=== PATIENT | male | born 1985 | race Caucasian/White ===

== ENCOUNTER 2020-12-14 09:04 | Emergency (ER) | payer SELFPAY ==
[2020-12-14 09:27] VITALS: BP 138/92; PULSE 78; RESP 16; TEMP 36.8; O2SAT 97; BMI 22.8
--- NOTE | 2020-12-14 09:36 | ED.DENTAL ---
HPI - Dental/Oral General Chief complaint: Dental/Oral Stated complaint: dental pain Time Seen by Provider: 12/14/20 09:33 Source: patient Mode of arrival: ambulatory Limitations: no limitations History of Present Illness MD Complaint: tooth pain Location: Tooth # (MULTIPLE LEFT LOWER DENTAL CARIES - POOR DENTITION) Onset (ago): day(s) (5) Duration: worsening Severity: severe Relieving factors: nothing Exacerbating factors: chewing, cold, drinking fluids and swallowing Context: history of dental caries Associated symptoms: gum swelling Treatment prior to arrival: none Related Data Previous Rx's Medication Instructions Recorded amoxicillin 500 mg capsule 500 mg PO TID 10 Days #30 cap 12/14/20 hydrocodone 5 mg-acetaminophen 325 1 tab PO Q6H PRN #12 tab 12/14/20 mg tablet Allergies Allergy/AdvReac Type Severity Reaction Status Date / Time No Known Allergies Allergy Verified 12/14/20 09:37 Review of Systems Review of Systems: Constitutional : No Fever, No Chills ENT/Mouth : No swallowing difficulty, no change in voice, positive dental pain, positive jaw pain, positive facial swelling Eyes: No Eye Pain, No Swelling Cardiovascular : No Chest Pain, No SOB Respiratory : No Cough, No Sputum Gastrointestinal : No Nausea, No Vomiting, No Diarrhea Genitourinary : No Dysuria Musculoskeletal : No Myalgias Skin : No rash Neuro : No Weakness, No Numbness, No Headache PMFSH Past Medical History Attestation statement: The following information was validated with the patient. Medical History No known health problems Social History Social History (Updated 12/14/20 @ 09:53 by Fatoumata Drew DO) Patient Tobacco Use Status: Current everyday Tobacco user Advance Directives: No Physical Exam Vital Signs: Vital Signs: Last Vital Signs Temp 98.3 F 12/14/20 09:27 Pulse 78 12/14/20 09:27 Resp 16 12/14/20 09:27 BP 138/92 H 12/14/20 09:27 Pulse Ox 97 12/14/20 09:27 Body Mass Index 22.8 Appearance: Alert. Oriented X3. No acute distress. Eyes: Pupils equal, round and reactive to light. ENT: severe diffuse poor dentition - teeth are all down to the gum line and black diffusely with diffuse gum hyperemia on the left lower canine area there is mild swelling and fluctuance that has caused mild left lower lip swelling but I cannot find a discrete area to mouna, there is no submandibular or sublingual swelling, normal voice, drinking and tolerating secretions Neck: Normal inspection. Neck supple. CVS: Normal heart rate and rhythm. Pulses normal. Respiratory: No respiratory distress. Breath sounds normal. Abdomen: no trauma noted Skin: Skin warm and dry. Normal skin color. Extremities: No lower extremity edema. Neuro: Oriented X 3. No motor deficit. No sensory deficit. MDM - Dental/Oral MDM Narrative Medical decision making narrative: 35 yo male with poor dentition comes in with dental infection for the past several days now with likely developing abscess but on exam no discrete area to drain on exam - no evidence of deeper space infection, will start on amoxicillin and pain medications - has dental appointment tomorrow, discussed reasons to return Discharge Plan Discharge Clinical Impression: Dental caries, Dental abscess Patient Disposition: Home, Self-Care Instructions: Dental Abscess (ED), Mouth Care (ED) Additional Instructions: return to ED for any worsening symptoms or concerns PLEASE SEE THE DENTIST TOMORROW PLANNED IF NO IMPROVEMENT ON ANTIBIOTICS IN 24 HOURS YOU NEED TO BE SEEN SOON POSSIBLE Prescriptions: New amoxicillin 500 mg capsule 500 mg PO TID 10 Days Qty: 30 RF: 0 hydrocodone-acetaminophen 5-325 mg tablet 1 tab PO Q6H PRN (Reason: pain) Qty: 12 RF: 0 Stand Alone Forms: Work/School Release
[2020-12-14] MEDS: Amoxicillin 500 MG CAPSULE PO (10:00)
[2020-12-14] MEDS: HYDROcodone Bit/Acetam 5/325 TABLET 1 TAB PO (10:00)
== END 2020-12-14 10:03 | disposition home or self-care (01) ==
PROVIDERS: Emergency Provider Emergency Medicine
DX: K02.9 Dental caries, unspecified (principal); K04.7 Periapical abscess without sinus; F17.200 Nicotine dependence, unspecified, uncomplicated
CPT/HCPCS: 99283; 99284

== ENCOUNTER 2021-10-22 20:01 | Emergency (ER) | payer OTHER, MEDICAID, SELFPAY ==
--- NOTE | ~2021-10-22 | XR_ITS ---
EXAMINATION: XR LUMBOSACRAL SPINE CLINICAL INFORMATION: Low back pain COMPARISON: None TECHNIQUE: Three views of the lumbosacral spine. FINDINGS: There is normal lumbar lordosis. The vertebral heights, alignment and disc heights are normal. There is no visible acute fracture, dislocation or subluxation. No aggressive lytic or sclerotic process seen. The paravertebral soft tissues are normal. XR/XR lumbar spine 2-3V IMPRESSION: Unremarkable lumbar spine examination.
[2021-10-22 20:09] VITALS: BP 152/86; PULSE 91; RESP 17; TEMP 37; O2SAT 99; BMI 21.4
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
[2021-10-22] MEDS: Lidocaine 4 % Patch ADH..PATCH 1 PATCH TRANSDERMA (22:20)
[2021-10-22] MEDS: Ketorolac Tromethamine 30 MG/ML VIAL IM (22:20)
== END 2021-10-22 22:21 | disposition home or self-care (01) ==
PROVIDERS: Emergency Provider Emergency Medicine
DX: M54.50 Low back pain, unspecified (principal); Z79.899 Other long term (current) drug therapy; F17.200 Nicotine dependence, unspecified, uncomplicated; Z71.6 Tobacco abuse counseling
CPT/HCPCS: 72100; 96372; 99283; 99284; J1885

== ENCOUNTER 2023-01-10 11:23 | Emergency (ER) | payer MEDICAID, SELFPAY ==
[2023-01-10 11:44] VITALS: BP 142/97; PULSE 88; RESP 16; TEMP 37; O2SAT 98; BMI 21.4
--- NOTE | 2023-01-10 11:44 | ED.GENADULT ---
HPI - General Adult General Chief complaint: Dental/Oral Stated complaint: headache and dental pain Time Seen by Provider: 01/10/23 11:47 Source: patient Mode of arrival: ambulatory Limitations: no limitations History of Present Illness HPI narrative: Patient is a 37 year old assigned male at with a history of poor dentition presenting to the emergency department today with a headache and dental pain. Patient states that over the last few days he has had worsening dental pain and a headache. Patient states he primary needs time off of work to get into a dentist. Patient denies any dizziness, lightheadedness, abdominal pain, nausea, vomiting, fever, chills, blurry vision, double vision, loss of vision, chest pain, difficulty breathing, shortness of breath, back pain, night sweats, pain with urination, increased urinary frequency, increased urinary urgency, blood in his urine or stool, syncope or a near syncopal episode, recent trauma or falls, bowel incontinence, bladder incontinence, bowel retention, bladder retention, or any other complaints at this time. Onset (ago): day(s) Location: head and mouth Severity: mild Severity scale (1-10): 4 Quality: aching and dull Pain Consistency: constant Relieving factors: none Exacerbating factors: none Associated symptoms: headaches Treatments prior to arrival: none Related Data Previous Rx's Medication Instructions Recorded amoxicillin 500 mg capsule 500 mg PO TID 10 days #30 caps 12/14/20 hydrocodone 5 mg-acetaminophen 325 1 tab PO Q6H PRN pain #12 tabs 12/14/20 mg tablet cyclobenzaprine 10 mg tablet 10 mg PO BEDTIME PRN muscle spasm 10/22/21 #7 tabs lidocaine 5 % topical patch 1 patch topical DAILY PRN pain #15 10/22/21 ea naproxen 500 mg tablet 500 mg PO BID 7 days #14 tabs 01/10/23 penicillin V potassium 500 mg 500 mg PO BID 10 days #20 tabs 01/10/23 tablet Allergies Allergy/AdvReac Type Severity Reaction Status Date / Time No Known Allergies Allergy Verified 01/10/23 11:44 Review of Systems Constitutional: Constitutional: Reports no additional constitutional complaints, Denies chills, Denies fever(s), Reports headache(s) and Denies night sweats Eyes: Eyes: Reports no additional eye complaints, Denies blurry vision, Denies change in vision, Denies diplopia, Denies eye discharge, Denies loss of vision and Denies eye pain ENT: Denies dizziness, Reports headache(s) and Reports mouth pain Cardiovascular: Cardiovascular: Reports no additional cardiovascular complaints, Denies chest pain, Denies lightheadedness, Denies Loss of Consciousness and Denies dyspnea Respiratory: Respiratory: Reports no additional respiratory complaints and Denies dyspnea Gastrointestinal: Gastrointestinal: Reports no additional gastrointestinal complaints, Denies abdominal pain, Denies melena, Denies hematochezia, Denies change in bowel habits and Denies change in stool character Genitourinary: Genitourinary: Reports no additional male genitourinary complaints, Denies hematuria, Denies oliguria, Denies difficulty urinating, Denies dysuria, Denies urinary frequency, Denies urinary hesitancy, Denies urinary incontinence and Denies urinary urgency Musculoskeletal: Musculoskeletal: Reports no additional musculoskeletal complaints, Denies numbness and Denies tingling Neurologic: Denies dizziness, Reports headache(s), Denies loss of vision, Denies numbness and Denies tingling Psychiatric: Psychiatric: Reports no additional psychiatric complaints Endocrine: Endocrine: Reports no additional endocrine complaints Hematologic/Lymphatic: Hematologic/Lymphatic: Reports no additional hematologic/lymphatic complaints Allergic/Immunologic: Allergic/Immunologic: Reports no additional allergic/immunologic complaints PMFSH Past Medical History Attestation statement: The following information was validated with the patient. Source: old records reviewed and nursing notes reviewed Medical History No known health problems Social History Social History Patient Tobacco Use Status: Current everyday Tobacco user Advance Directives: No Advance Directives Information Provided: No Physical Exam ED Vital Signs: Vital Signs - 24 hr 01/10/23 11:44 Temperature 98.6 F Pulse Rate 88 Respiratory Rate 16 Blood Pressure 142/97 H Pulse Oximetry 98 Oxygen Delivery Method Room Air BMI result Body Mass Index 21.4 Const General: cooperative, no acute distress, alert and awake Nutritional Appearance: well nourished Orientation/consciousness: patient oriented x3 Limitations: no limitations HENMT Head: Yes normal to inspection and Yes atraumatic Ears: hearing grossly normal bilaterally and external ears normal General nose exam: Normal external nose present, no nasal discharge noted and no epistaxis Face and sinus: Yes normal facial exam, No abrasion and No laceration Mouth: Normal oral and palatal mucosa present, no drooling and no muffled voice Teeth and gingiva: poor dentition (primarily nubs for teeth with caries throughout them) Eyes General: appearance normal, both eyes and all related structures Periorbital: periorbital findings normal Eyelids: Yes eyelids normal Conjunctivae: conjunctivae normal Pupils: Equal, round and reactive pupils present EOM: EOMs intact bilaterally Neck Neck: Yes normal visual inspection, Yes full ROM and Yes no lymphadenopathy Chest Chest palpation & inspection: normal inspection of the chest Resp Effort & Inspection: normal respiratory effort and able to speak in complete sentences GI Inspection: Yes normal to inspection Neuro General: patient oriented x3 and moves all extremities Cranial nerves: Yes Equal, round and reactive pupils present Cognition (Neuro): normal cognition Motor exam (neuro): 5/5 motor strength present throughout Sensory Exam: Normal double simultaneous stimulation for sensation Coordination: [id number] test normal Extrem General: Yes normal to inspection, Yes full ROM and Yes capillary refill normal Psych Appearance: grossly normal Mental Status: mental status grossly normal Affect: normal affect Attitude: cooperative Thought process: Normal thought process present Thought content: Normal thought content present Insight: Good insight present (Psych) Medical Decision Making Medical Decision Making MDM Narrative: Patient is a 37 year old assigned male at with a history of poor dentition presenting to the emergency department today with a headache, dental pain, and requesting time off work to visit a dentist. Patient's physical exam was as noted in the physical exam portion of this note. No collection was appreciated however, given the patient's pain and dentition, will treat for dental abscess. I explained my physical exam findings to the patient. I answered all questions asked by the patient. I stressed the importance of the patient taking his medication as prescribed. I stressed the importance of the patient following up with his primary care provider and a dentist. I stressed the importance of the patient returning to the emergency department immediately if his symptoms were to worsen or if he were to develop any dizziness, shortness of breath, difficulty breathing, chest pain, blurry vision, loss of vision, nausea, vomiting, abdominal pain, fever, chills, back pain, or any other complaints. Patient verbalized agreement and understanding with this treatment plan and discharge. Differential Diagnosis Differential Diagnoses: The differential diagnosis associated with the presentation includes Dental abscess Dental caries Poor dentition Prescription Management I considered prescription management with: Antibiotic (patient prescribed antibiotic for suspicion of dental abscess) Discharge Plan Discharge Clinical Impression: Dental abscess Patient Disposition: Home, Self-Care Instructions: Dental Abscess (ED) Additional Instructions: Follow up with your primary care provider and a dentist. Return to the emergency department immediately if your symptoms worsen or if you develop any dizziness, shortness of breath, difficulty breathing, chest pain, blurry vision, loss of vision, nausea, vomiting, abdominal pain, fever, chills, back pain, or any other complaints. Call or visit any of the clinics below to establish with a dentist: [facility] [address] [place] [address] [facility] [address] [facility], [address] [address] [facility] [address] [place] [id number] [facility] [address] [place] [address] [address] [place] [address] Prescriptions: New penicillin V potassium 500 mg tablet 500 mg PO BID 10 Days Qty: 20 0RF naproxen 500 mg tablet 500 mg PO BID 7 Days Qty: 14 0RF No Action cyclobenzaprine 10 mg tablet 10 mg PO BEDTIME PRN (Reason: muscle spasm) Qty: 7 0RF lidocaine 5 % adhesive patch,medicated 1 patch topical DAILY PRN (Reason: pain) Qty: 15 0RF Rx Instructions: leave on most painful area for up to 12 hrs amoxicillin 500 mg capsule 500 mg PO TID 10 Days Qty: 30 0RF hydrocodone-acetaminophen 5-325 mg tablet 1 tab PO Q6H PRN (Reason: pain) Qty: 12 0RF Referrals: [facility] [[place] Group] (Call to establish and follow up with a primary care provider. If you already have a primary care provider, please follow up with them.) [facility] [Provider Group] (Call to establish and follow up with a primary care provider. If you already have a primary care provider, please follow up with them.) [facility] [Provider Group] (Call to establish and follow up with a primary care provider. If you already have a primary care provider, please follow up with them.) Stand Alone Forms: Work/School Release Interventions: ED Discharge Assessment Last Done: 01/10/23 11:49 Discharge Date/Time: 01/10/23 11:50 Print Language: Colombian
== END 2023-01-10 11:50 | disposition home or self-care (01) ==
LOC: HO.ED 11:49
PROVIDERS: Emergency Provider Emergency Medicine
DX: K04.7 Periapical abscess without sinus (principal); R51.9 Headache, unspecified; F17.200 Nicotine dependence, unspecified, uncomplicated; Z71.6 Tobacco abuse counseling; Z79.899 Other long term (current) drug therapy
CPT/HCPCS: 99282; 99283

== ENCOUNTER 2025-01-14 10:58 | Emergency (ER) | payer MEDICAID, SELFPAY ==
--- NOTE | ~2025-01-14 | XR_ITS ---
EXAMINATION: XR THORACIC SPINE CLINICAL INFORMATION: back pain COMPARISON: None available. TECHNIQUE: AP lateral and swimmer's projection. FINDINGS: Multilevel marginal osteophyte formation and endplate sclerosis. No acute cortical disruption or malalignment. No lytic or blastic lesions. Mild S-shaped curvature of the thoracic spine. XR/XR thoracic spine 3V IMPRESSION: Multilevel spondylosis without acute fracture or gross listhesis. EXAMINATION: XR LUMBOSACRAL SPINE CLINICAL INFORMATION: back pain COMPARISON: October 22, 2021 TECHNIQUE: AP and lateral views. FINDINGS: Rudimentary ribs at T12. Prominent left transverse processes of L5 articulating with the sacrum. Mild multilevel marginal osteophyte formation and endplate sclerosis pronounced at L2-3 and L1 to levels. Levoconvex curvature of the lumbar spine. 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 Electronically signed by: Bull Forrester MD 01/14/2025 11:42 AM EST
--- NOTE | ~2025-01-14 | XR_ITS ---
EXAMINATION: XR THORACIC SPINE CLINICAL INFORMATION: back pain COMPARISON: None available. TECHNIQUE: AP lateral and swimmer's projection. FINDINGS: Multilevel marginal osteophyte formation and endplate sclerosis. No acute cortical disruption or malalignment. No lytic or blastic lesions. Mild S-shaped curvature of the thoracic spine. XR/XR lumbar spine 2-3V IMPRESSION: Multilevel spondylosis without acute fracture or gross listhesis. EXAMINATION: XR LUMBOSACRAL SPINE CLINICAL INFORMATION: back pain COMPARISON: October 22, 2021 TECHNIQUE: AP and lateral views. FINDINGS: Rudimentary ribs at T12. Prominent left transverse processes of L5 articulating with the sacrum. Mild multilevel marginal osteophyte formation and endplate sclerosis pronounced at L2-3 and L1 to levels. Levoconvex curvature of the lumbar spine. 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 Electronically signed by: Bull Forrester MD 01/14/2025 11:42 AM [facility]
[2025-01-14 11:10] VITALS: BP 157/85; PULSE 78; RESP 18; TEMP 37; O2SAT 98; BMI 18.9
--- NOTE | 2025-01-14 11:20 | ED_ITS ---
HPI - General Adult General Chief complaint: Back Pain/Injury Stated complaint: Back Pain Time Seen by Provider: 01/14/25 12:09 Source: patient Mode of arrival: ambulatory Limitations: no limitations History of Present Illness ED Provider: Matt Aguiar HPI narrative: 39 yold male healthy presents to the ED for low back pain radiating down left leg. Patient denies any recent trauma, dysuria, hematuria, flank pain, fever, chills, urinary/bowel incontinence, IV drug use, or immunocompromised diseases. Related Data Previous Rx's ?Medication ?Instructions ?Recorded amoxicillin 500 mg capsule 500 mg PO TID 10 days #30 c aps 12/14/20 hydrocodone 5 mg-acetaminophen 325 1 tab PO Q6H PRN pa in #12 tabs 12/14/20 mg tablet cyclobenzaprine 10 mg tablet 10 mg PO BEDTIME PRN musc le spasm 10/22/21 #7 tabs lidocaine 5 % topical patch 1 patch topical DAILY PRN pain #15 10/22/21 ea naproxen 500 mg tablet 500 mg PO BID 7 days #14 tab s 01/10/23 penicillin V potassium 500 mg 500 mg PO BID 10 days #2 0 tabs 01/10/23 tablet cyclobenzaprine 10 mg tablet 10 mg PO BEDTIME PRN musc le spasm 01/14/25 #10 tabs naproxen 500 mg tablet 500 mg PO BID PRN pain #14 t abs 01/14/25 prednisone 20 mg tablet 40 mg (2 x 20 mg) PO DAILY 5 days 01/14/25 #10 tabs Allergies Allergy/AdvReac Type Severity Reaction Status Date / Time No Known Allergies Allergy Verified 01/14/25 11:13 Review of Systems Review of Systems: back pain radiating down left leg Yes all other systems are reviewed and are negative [facility] Past Medical History Medical History No known health problems Social History Social History Patient Tobacco Use Status: Current everyday Tobacco user Advance Directives: No Advance Directives Information Provided: Yes Do you have a plan to hurt others: No Plan Physical Exam ED Vital Signs: Vital Signs - 24 hr 01/14/25 11:10 Temperature 98.6 F Pulse Rate 78 Respiratory Rate 18 Blood Pressure 157/85 H Pulse Oximetry 98 Oxygen Delivery Method Room Air BMI result Body Mass Index 18.9 [facility] Head: Yes normal to inspection, Yes No palpable skull fracture present, Yes normocephalic and Yes atraumatic Eyes General: appearance normal, both eyes and all related structures Neck Neck: Yes normal visual inspection, Yes full ROM, Yes no lymphadenopathy, Yes no meningeal signs, Yes trachea midline, Yes supple, No anterior neck swelling and No tender Chest Chest palpation & inspection: normal inspection of the chest and normal palpation of entire chest wall Resp Effort & Inspection: normal respiratory effort and able to speak in complete sentences Auscultation: clear to auscultation bilaterally Cardio Jugular venous distension: no JVD Heart sounds: S1 normal heart sound present GI Inspection: Yes normal to inspection Palpation (GI): Soft to palpation, not firm, nontender, no guarding and not rigid Back/Spine/Pelvis Back: back tenderness (lumbar spine tenderness) Skin General skin exam: no rashes or lesions noted, elasticity normal and turgor normal Neuro General: moves all extremities, Normal light touch and pain sensation, no meningeal signs, no focal motor deficits, CN's II-XI intact bilaterally and normal sensation to monofilament Extrem General: Yes normal to inspection, Yes full ROM and Yes capillary refill normal Psych Appearance: grossly normal, well kempt and not disheveled Course Course Course Narrative: RME: 39 yold male presents to the ED for lower back pain radating down leg and calf without any trauma. patient states no urinary/bowel incontinence, IV drug use, or immunocompromise diseases. X-rays ordered Medications Administered Discontinued Medications Generic Name Dose Route Start Last Admin Trade Name Freq PRN Reason Stop Dose Admin Cyclobenzaprine HCl 10 mg 01/14/25 12:20 01/14/25 12:46 Cyclobenzaprine Hcl 10 Mg Tablet PO 01/14/25 12:21 10 mg ONCE ONE Administration Ketorolac Tromethamine 30 mg 01/14/25 12:20 01/14/25 12:47 Ketorolac Tromethamine 30 Mg/Ml Vial IM 01/14/25 12:21 30 mg ONCE ONE Administration Prednisone 40 mg 01/14/25 12:20 01/14/25 12:46 Prednisone 20 Mg Tablet PO 01/14/25 12:21 40 mg ONCE ONE Administration Medical Decision Making Medical Decision Making MDM Narrative: 39-year-old male presents to ED for lower back pain that is worse on movement radiating down left leg with some numbness. Patient denies any recent trauma, fever or chills. Patient denies any IV drug use, immunocompromise diseases, saddle anesthesia, or urinary / bowel incontinence. Not suspecting DVT, cauda equinus syndrome, epidural abscess, osteomyelitis, pyelonephritis, kidney stones, UTI, or any other life-threatening etiology. Patient explained worrisome signs informed return to the ED immediately Differential Diagnosis Differential Diagnoses: The differential diagnosis associated with the presentation includes (back pain, ) Admission/Observation Consideration of admission/observation: Escalation of care including admission/observation considered Independent Interpretation I performed an independent interpretation of an: Plain X-Ray Independent Historian Clinical information obtained from an independent historian. History obtained from or confirmed by: Other (patient) Prescription Management I considered prescription management with: Pain Medication Discharge Plan Discharge Clinical Impression: Lumbar radiculopathy Patient Disposition: Home, Self-Care Instructions: Lumbar Radiculopathy (ED), Back Pain (ED) Additional Instructions: recommend follow-up primary care provider. May need physical therapy MRI no improvement. Return to the ED immediately for any dysuria, hematuria, flank p ain, fever, chills, nausea, vomiting, severe back pain, weakness numbness/ tingling of lower extremity, genital numbness, or any other concerning symptoms. Ordering Physician: Matt Aguiar Date of Service: 01/14/25 Procedure(s): XR lumbar spine 2-3V Accession Number(s): [id number] cc: Matt Aguiar; Physician,Unknown ~ Reason for Exam: back pain. EXAMINATION: XR THORACIC SPINE CLINICAL INFORMATION: back pain COMPARISON: None available. TECHNIQUE: AP lateral and swimmer's projection. FINDINGS: Multilevel marginal osteophyte formation and endplate sclerosis. No acute cortical disruption or malalignment. No lytic or blastic lesions. Mild S-shaped curvature of the thoracic spine. XR/XR lumbar spine 2-3V IMPRESSION: Multilevel spondylosis without acute fracture or gross listhesis. EXAMINATION: XR LUMBOSACRAL SPINE CLINICAL INFORMATION: back pain COMPARISON: October 22, 2021 TECHNIQUE: AP and lateral views. FINDINGS: Rudimentary ribs at T12. Prominent left transverse processes of L5 articulating with the sacrum. Mild multilevel marginal osteophyte formation and endplate sclerosis pronounced at L2-3 and L1 to levels. Levoconvex curvature of the lumbar spine. 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 Electronically signed by: Bull Forrester MD 01/14/2025 11:42 AM [facility] Prescriptions: New naproxen 500 mg tablet 500 mg PO BID PRN (Reason: pain) Qty: 14 0RF prednisone 20 mg tablet 40 mg PO DAILY 5 Days Qty: 10 0RF cyclobenzaprine 10 mg tablet 10 mg PO BEDTIME PRN (Reason: muscle spasm) Qty: 10 0RF Rx Instructions: do not take at work or while driving. No Action cyclobenzaprine 10 mg tablet 10 mg PO BEDTIME PRN (Reason: muscle spasm) Qty: 7 0RF lidocaine 5 % adhesive patch,medicated 1 patch topical DAILY PRN (Reason: pain) Qty: 15 0RF Rx Instructions: leave on most painful area for up to 12 hrs amoxicillin 500 mg capsule 500 mg PO TID 10 Days Qty: 30 0RF hydrocodone-acetaminophen 5-325 mg tablet 1 tab PO Q6H PRN (Reason: pain) Qty: 12 0RF penicillin V potassium 500 mg tablet 500 mg PO BID 10 Days Qty: 20 0RF naproxen 500 mg tablet 500 mg PO BID 7 Days Qty: 14 0RF Referrals: Teddy Brown MD, PhD [Physician, Neuro Spine] - 2 days Referral Note: Lumbar radiculopathy. Bertolotti syndrome Clinical Impression: Lumbar radiculopathy Stand Alone Forms: Work/School Release Discharge Date/Time: 01/14/25 14:35 Print Language: [place]
== END 2025-01-14 14:35 | disposition home or self-care (01) ==
PROVIDERS: Emergency Provider Student in an Organized Health Care Education/Training Program
DX: M54.16 Radiculopathy, lumbar region (principal); F17.200 Nicotine dependence, unspecified, uncomplicated; Z71.6 Tobacco abuse counseling
CPT/HCPCS: 72072; 72100; 96372; 99282; 99284; J1885

== ENCOUNTER → 2025-01-14 11:18 | Outpatient (BNV) | payer MEDICAID, SELFPAY | PROVIDERS: Visit Provider Radiology Diagnostic Radiology | DX: M47.816 Spondylosis without myelopathy or radiculopathy, lumbar region (principal); Q76.49 Other congenital malformations of spine, not associated with scoliosis; M47.814 Spondylosis without myelopathy or radiculopathy, thoracic region | CPT/HCPCS: 72072; 72100 ==

== ENCOUNTER 2025-01-29 08:20 | Outpatient (AMB) | payer OTHER, SELFPAY ==
--- NOTE | 2025-01-29 08:20 | A.OFFPC_ITS ---
Vital Signs 01/29/25 08:21 Height 5 ft 9 in Weight 127 lb 6 oz BMI 18.8 BP 130/84 Blood Pressure Location Lt brachial Position Sitting Respiration 16 Pulse 84 Pulse Source Pulse Oximeter Temp 97.1 F Temp Source Temporal Artery Scan Pulse Oximetry (%) 96 Oxygen Delivery Method Room Air Intake Visit Reasons: severe back pain Hospital Manager Required: No Accompanied by: Significant Other Allergies No Known Allergies Allergy (Verified 01/29/25 08:20) Medication List - Last Reconciled 01/29/25 by Nate Duffy MD ibuprofen 200 mg PO Q6H PRN Tobacco use date assessed: 01/29/25 Dental Screening Dental Screen Date: 01/29/25 Did you have a dental visit in the last 12 months?: No Did you have a dental problem in the last 6 months where you did not have access to dental care?: No HPI HPI Comments History of Present Illness Details History of Present Illness The patient is a 39-year-old male presenting for a new patient visit and ev aluation of back pain. He reports an intermittent history of back pain for the last 2-3 years, which started after a work injury affecting his left side. The pain recurred and has been present for the last month or two after he slipped on some stairs. The pain is located on the left lower side and radiates to his buttock and down his leg, associated with numbness and tingling. He recently visited an emergency room for this pain, where he had X-rays of his lumbar spine. Past treatments include prednisone, which helped, and cyclobenzaprine, which was only effective for one to two days. He has been managing the pain with ibuprofen and Tylenol. The patient reports no chronic medical conditions and has had no surgeries. He has not had the COVID or flu shot this year. Based on his weight, he is considered underweight, and his girlfriend notes that he barely eats. Medical History: - No chronic medical conditions reported Surgical History: - No prior surgeries reported Medications: - Ibuprofen as needed for pain - Tylenol as needed for pain - Cyclobenzaprine (previously prescribed , reported as ineffective) - Prednisone (previously prescribed, rep orted as helpful) Family History: - Father: recently from hear t failure. - Brother: Has a congenital heart defect , described as a hole in the heart. - Niece: at age 7 from an un known cause, possibly related to diabetes. 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 Social History - Tobacco: Smokes half a pack of cigaret radha per day for about 17 years. - Alcohol: Denies alcohol use. - Illicit substances: Smokes marijuana d aily, approximately 3.5 grams. - Diet: Consumes a lot of coffee and Red Bull. - Social: He has two children and has a girlfriend of 18 years. - Activity: Reports trying to stay activ [employer] [facility] Medical History (Updated 01/29/25 @ 08:48 by Nate Duffy MD) Annual physical exam Cannabis use disorder Tobacco use disorder, continuous Low back pain No known health problems Social History Housing: Apartment Patient Tobacco Use Status: Current everyday Tobacco user Cigarette Packs Per Day: 0.5 e-Cigarette/Vaping Use: Former Use service: No Current occupational status: unemployed Questionnaire PHQ-9 Over the last 2 weeks, how often have you been bothered by any of the following problems? 1. Little interest or pleasure in doing things: not at all 2. Feeling down, depressed, or hopeless: not at all 3. Trouble falling or staying asleep, or sleeping too much: not at all 4. Feeling tired or having little energy: not at all 5. Poor appetite or overeating: not at all 6. Feeling bad about yourself - or that you are a failure or have let yourself or your family down: not at all 7. Trouble concentrating on things, such as reading the newspaper or watching television: not at all 8. Moving or speaking so slowly that other people could have noticed. Or the opposite - being so fidgety or restless that you have been moving around a lot more than usual: not at all 9. Thoughts that you would be better off or of hurting yourself in some way: not at all Total score: 0 Depression Screening Interpretation: Negative Depression Screening Done: Yes 37195 - PHQ-9 Billing: Yes Source: Developed by Drs. Kev Hubbard, Malinda ChuJamaal and colleagues, with an educational edie from [employer]. Thrive Questionnaire Date Thrive assessed: 01/29/25 I am a: Patient What is your living situation today?: I have a steady place to live Within the past 12 months, did the food you bought not last and you didn't have the money to get more?: Never true Within the past 12 months, did you worry whether your food would run out before you got money to buy more?: Never true Do you have trouble paying for medicines?: No Do you have trouble getting transportation to medical appointments?: No Do you have trouble paying your heating and electricity bill?: No Do you have trouble taking care of your child, family member or friend?: No Do you have trouble with day-to-day activities such as bathing, preparing meals, shopping, managing finances, etc.?: No Are you currently unemployed and looking for a job?: No Are you interested in more education?: No THRIVE Score: 0 AUDIT C Alcohol Use Questionnaire (AUDIT-C) 1. How often do you have a drink containing alcohol?: Never 3. How often do you have six or more drinks on one occasion?: Never Total Score: 0 Score Reviewed/Action Taken: Yes NADIR-7 AMB Questionnaire NADIR-7 Date NADIR - 7 assessed: 01/29/25 Feeling nervous, anxious, or on edge: 0 = Not at all Not being able to stop or control worryin = Not at all Worrying too much about different things: 0 = Not at all Trouble relaxin = Not at all Being so restless that it is hard to sit still: 0 = Not at all Becoming easily annoyed or irritable: 0 = Not at all Feeling afraid as if something awful might happen: 0 = Not at all Total NADIR-7 score (0-4 normal; 5-9 mild; 10-14 moderate; 15-21 severe): 0 Source: Developed by Drs. Kev Hubbard, Malinda Chu, Jamaal Falk and colleagues, with an educational edie from [employer]. NADIR-7 Assessment Billing NADIR-7 Assessment Tool: NADIR-7 Assessment 07061 Review of Systems Narrative Review of Systems - Constitutional: Reports being underweight. - Musculoskeletal: Reports intermittent low back pain for approximately 3 years, which is currently located on the left side and radiates to the buttock. - Neurological: Reports numbness and a tingling sensation radiating down his leg. - General: Denies any other medical conditions. All systems reviewed & are unremarkable except as reviewed in HPI and above Physical exam (Primary Care) Vital Signs: Last Vital Signs Temp 97.1 F 01/29/25 08:21 Pulse 84 01/29/25 08:21 Resp 16 01/29/25 08:21 BP 130/84 01/29/25 08:21 Pulse Ox 96 01/29/25 08:21 Oxygen Delivery Method Room Air 01/29/25 08:21 BMI result Body Mass Index 18.8 Tobacco/Smoking Status: Tobacco use Status Tobacco use date assessed 01/29/25 01/29/25 08:21 Patient Tobacco Use Status Current everyday Tobacco 01/29/25 08:21 e-Cigarette/Vaping Use Former Use 01/29/25 08:28 Are you ready to quit: Yes Tobacco cessation counseling provided: Yes Relapse Prevention: discussed the importance of a supportive environment and discussed dietary, exercise and/or lifestyle changes Number of minutes spent counselin CPT code: 02419 - 4-10 Minutes Depression Screening Interpretation: Negative Narrative Physical Exam General: Alert and oriented, Well nourished, No acute distress. Eye: Pupils are equal, round and reactive to light, Intact accommodation, Extraocular movements are intact, Normal conjunctiva, Vision unchanged. HENT: Normocephalic, Atraumatic, Tympanic membranes are clear, Normal hearing, Oral mucosa is moist, No pharyngeal erythema, Ear canals patent. Respiratory: Lungs CTA bilaterally, No wheeze, Respirations are non-labored. Cardiovascular: Regular rate, Regular rhythm, S1 auscultated, S2 auscultated, No murmur, Good pulses equal in all extremities, Normal peripheral perfusion, No edema. Gastrointestinal: Soft, Non-tender, Non-distended, Normal bowel sounds, No organomegaly. Musculoskeletal: Limited range of motion due to pain, Normal strength, Tenderness in the left lower back, No swelling, No deformity, Normal gait. Integumentary: Warm, Dry, English, Intact. Neurologic: Alert, Oriented, Normal sensory, Normal motor function, No focal defects, Cranial Nerves II-XII are grossly intact, Normal deep tendon reflexes. Psychiatric: Cooperative, Appropriate mood & affect, Normal judgment. Coding Level of Care Code New Pt Level 3 (18382) New Pt Prev Care 18-39yr(66845 Diagnoses Chronic bilateral low back pain with left-sided sciatica G89.29; M54.42 Chronicity: chronic Back pain laterality: bilateral Sciatica presence: with sciatica Sciatica laterality: sciatica of left side Tobacco use disorder, continuous F17.209 Cannabis use disorder F12.90 Annual physical exam Z00.00 Additional Codes NADIR-7 Assessment Billing - NADIR-7 Assessment Tool: NADIR-7 Assessment 33648 ([id number]) PHQ-9 - 91199 - PHQ-9 Billing: Yes ([id number]) Vital Signs *Quality* - CPT code: 55521 - 4-10 Minutes ([id number]) Comment 11152-16 Assessment & Plan Assessment & Plan (1) Low back pain: Comment: - The patient's presentation of left-sided low back pain radiating to the buttock and down the leg, with associated numbness, is diagnosed as sciatica. - An MRI would be the next best imaging modality but will be deferred pending a trial of conservative management - A referral will be sent for physical therapy. - Prescribed gabapentin 100 mg three times a day. - Instructed to continue alternating ibuprofen and Tylenol every 4-6 hours for pain management. - Follow-up in two months to assess response to treatment. Code(s): M54.50 - Low back pain, unspecified Category: Medical Qualifiers: Chronicity: chronic Back pain laterality: bilateral Sciatica presence: with sciatica Sciatica laterality: sciatica of left side Qualified Code(s): G89.29 - Other chronic pain; M54.42 - Lumbago with sciatica, left side (2) Tobacco use disorder, continuous: Comment: - The patient reports smoking half a pack of cigarettes a day for approximately 17 years. - Advised to quit smoking. Code(s): F17.209 - Nicotine dependence, unspecified, with unspecified nicotine-induced disorders Category: Medical (3) Cannabis use disorder: Comment: - The patient reports smoking approximately 3.5 grams of marijuana daily. - Strongly advised to stop marijuana use due to its high quantity and potential sedative interaction with the newly prescribed gabapentin. Code(s): F12.90 - Cannabis use, unspecified, uncomplicated Category: Medical (4) Annual physical exam: Comment: - As this is a new patient visit, comprehensive blood work was ordered to establish baseline health, including a CBC, electrolytes, glucose, hepatitis panel, HIV, cholesterol panel, urinalysis, syphilis screen, thyroid levels, and vitamin D. - The patient is currently underweight and was counseled on improving his diet. - Advised to reduce his high caffeine intake from coffee and Red Bull. - Encouraged to remain active to the best of his ability. - Will follow up in two months to review lab results and overall progress. Code(s): Z00.00 - Encounter for general adult medical examination without abnormal fin dings Category: Medical Plan: Health Maintenance: - Vaccinations: Patient reports he has not received the COVID-19 or influenza vaccines this year. - Lab screening: Ordered comprehensive labs including CBC, electrolytes, glucose, cholesterol, hepatitis panel, HIV test, syphilis test, thyroid panel, and vitamin D level. - Substance use counseling: Advised to quit smoking cigarettes and marijuana. - Lifestyle counseling: Advised to reduce caffeine intake (coffee and Red Bull), improve dietary habits as he is underweight, and stay physically active. Patient was informed and verbally consented to the use of an ambient scribe for clinic note documentation during this visit. Vital signs reviewed. Comprehensive history, review of systems, and physical exam completed. Medications, allergies, and problem list reviewed and updated. Counseling provided on nutrition, regular exercise, sleep hygiene, and moderation of alcohol use. Discussed age-appropriate screenings (mammogram, colonoscopy, Pap, bone density) and immunizations (flu, COVID, shingles, Tdap). Screened for depression, fall risk, and home safety; no current concerns. Discussed stress management, dental and vision care, and importance of ongoing preventive follow-up. Routine labs ordered for metabolic and lipid screening. Patient educated on healthy lifestyle and agrees with the plan. Plan I discussed with the patient that his symptoms are consistent with sciatica, which is nerve pain originating from the back. I explained that his recent X-ray showed some age-related changes but nothing that fully explains his current, severe symptoms. I outlined the plan to start physical therapy and a new medication, gabapentin, to help with the nerve pain. I was transparent about the process for obtaining an MRI, stating that insurance protocols require a trial of conservative treatments like physical therapy first. I strongly advised him to stop smoking marijuana, as its sedative effects can be dangerous when combined with gabapentin. We also discussed the importance of quitting cigarettes and reducing his high caffeine intake, as well as improving his diet since he is underweight. We will follow up in two months to assess his progress. Orders: Orders Complete Blood Count Auto Diff Today Z00.00 - Encounter for general adult medical examination without abnormal findings Comprehensive Met. Panel Today Z00.00 - Encounter for general adult medical examination without abnormal findings Syphilis Screen Today Z00.00 - Encounter for general adult medical examination without abnormal findings PT Evaluation and Treatment Today M54.50 - Low back pain, unspecified, M79.606 - Pain in leg, unspecified Hemoglobin A1c Today Z00.00 - Encounter for general adult medical examination without abnormal findings Hepatitis A,B,C Profile Today Z00.00 - Encounter for general adult medical examination without abnormal findings HIV Ab/Ag Today Z00.00 - Encounter for general adult medical examination without abnormal findings Lipid Panel Today Z00.00 - Encounter for general adult medical examination without abnormal findings Microalbumin, Random (w Creat) Today Z00.00 - Encounter for general adult medical examination without abnormal findings TSH reflex Free T4 Today Z00.00 - Encounter for general adult medical examination without abnormal findings Vitamin D 25-OH Total Today Z00.00 - Encounter for general adult medical examination without abnormal findings Medications: New gabapentin 100 mg PO TID 90 caps 0RF 30 days Discontinued amoxicillin Discontinued Reason: Patient Completed Course 500 mg PO TID 10 days 30 caps 0RF hydrocodone-acetaminophen 5-325 mg Discontinued Reason: Patient Completed Course 1 tab PO Q6H PRN 12 tabs 0RF pain cyclobenzaprine Discontinued Reason: Patient Completed Course 10 mg PO BEDTIME PRN 7 tabs 0RF muscle spasm lidocaine 5% leave on most painful area for up to 12 hrs Discontinued Reason: Patient Completed Course 1 patch topical DAILY PRN 15 ea 0RF pain naproxen Discontinued Reason: Patient Completed Course 500 mg PO BID 7 days 14 tabs 0RF penicillin V potassium Discontinued Reason: Patient Completed Course 500 mg PO BID 10 days 20 tabs 0RF cyclobenzaprine do not take at work or while driving. Discontinued Reason: Patient Completed Course 10 mg PO BEDTIME PRN 10 tabs 0RF muscle spasm naproxen Discontinued Reason: Patient Completed Course 500 mg PO BID PRN 14 tabs 0RF pain prednisone Discontinued Reason: Patient Completed Course 40 mg (2 x 20 mg) PO DAILY 5 days 10 tabs 0RF Patient Instructions: - Someone from the physical therapy department will call you to set up appointments. - Start taking gabapentin 100 mg, three times per day. - You can continue to take Tylenol and ibuprofen for pain by alternating them every 4-6 hours. - It is very important to stop smoking marijuana while taking gabapentin because the combination can be dangerous. - You should stop smoking cigarettes and drinking high-caffeine drinks like Red Bull. - Please try to eat more, as you are currently underweight. - Go across the [facility] to room 107 to have your blood drawn today. - We will see you back in the office in two months.
[2025-01-29 08:21] VITALS: BP 130/84; PULSE 84; RESP 16; TEMP 36.2; O2SAT 96; BMI 18.8
== END 2025-01-29 08:46 | disposition home or self-care (01) ==
LOC: HO.HMCHD 08:21
PROVIDERS: Visit Provider Student in an Organized Health Care Education/Training Program
DX: G89.29 Other chronic pain (principal); M54.42 Lumbago with sciatica, left side; F17.209 Nicotine dependence, unspecified, with unspecified nicotine-induced disorders; F12.90 Cannabis use, unspecified, uncomplicated; Z00.00 Encounter for general adult medical examination without abnormal findings

== ENCOUNTER 2025-01-29 08:20 | Outpatient (REF) | payer OTHER, SELFPAY ==
[2025-01-29 10:43] LABS: MANUAL DIFF FLAG NO
[2025-01-29 10:48] LABS: Hematocrit 46.8 % (42.0-52.0); Hemoglobin 16.2 g/dl (14.0-18.0); Imm Gran Abs Auto 0.02 X10*3/uL (0.00-0.03); Imm Gran Pct Auto 0.3 % (0.0-0.4); Lymphocytes Absolute Auto 2.5 X10*3/uL (1.2-4.9); Mean Corpuscular HGB Conc 34.6 g/dl (31.0-36.0); Mean Corpuscular Hemoglobin 32.6 pg (27.0-33.0); Mean Corpuscular Volume 94.2 fL (80.0-98.0); NRBC Abs Auto 0.000 X10*3/uL (0.0-0.012); NRBC Pct Auto 0.0 /100WBC (0.0-0.2); Platelet Count 325 X10*3/uL (160-400); Red Blood Count 4.97 X10*6/uL (4.60-5.80); White Blood Count 7.3 X10*3/uL (4.8-10.8)
[2025-01-29 11:21] LABS: Alanine Aminotransferase 19 U/L (0-40); Albumin Level 4.8 g/dL (3.5-5.0); Alkaline Phosphatase 82 U/L (39-117); Anion Gap 13 (12-20); Aspartate Amino Transferase 33 U/L (5-37); Blood Urea Nitrogen 13 mg/dL (9-16); Calcium 9.6 mg/dL (8.4-10.2); Carbon Dioxide 25 mmol/L (22-29); Chloride 108 mmol/L (96-108); Cholesterol 167 mg/dL (<200); Estimated Glomerular Filt Rate > 60; HDL Cholesterol 57 mg/dL (>40); Potassium 3.7 mmol/L (3.3-5.1); Sodium 142 mmol/L (135-145); Total Protein 7.9 g/dL (6.5-8.0); Triglycerides 83 mg/dL (<150)
[2025-01-29 11:25] LABS: Microalbum/Creatinine Ratio Ur 7.7 ug/mg cr (<30)
[2025-01-29 11:28] LABS: HBc Num1 0.11 S/CO (0.00-0.79); HBsAGNum1 0.39 S/CO (0.00-0.99); HIV Num 1 0.06 S/CO (0.00-0.99); Hepatitis A Antibody IgM 0.18 Index (0-0.79); Hepatitis B Surface Antigen Negative (Negative); ~HepC Num1 0.16 S/CO (0.00-0.79); ~Hepatitis A Antibody IgM Nonreactive (Nonreactive); ~Hepatitis B Surface Antibody REACTIVE (Nonreactive); ~Hepatitis C Antibody Nonreactive (Nonreactive)
[2025-01-29 11:29] LABS: Syphilis Screen Nonreactive (Nonreactive)
== END 2025-01-29 08:21 | disposition home or self-care (01) ==
LOC: HO.10HDL 08:20
PROVIDERS: Visit Provider Student in an Organized Health Care Education/Training Program
DX: Z00.00 Encounter for general adult medical examination without abnormal findings (principal); G89.29 Other chronic pain; M54.42 Lumbago with sciatica, left side; M79.606 Pain in leg, unspecified; F12.90 Cannabis use, unspecified, uncomplicated; F17.219 Nicotine dependence, cigarettes, with unspecified nicotine-induced disorders
CPT/HCPCS: 36415; 80053; 80061; 82043; 82306; 82570; 83036; 84443; 85025; 86704; 86706; 86709; 86780; 86803; 87340; 87389; 96127; 99202